=== PATIENT | male | born 1985 | race Caucasian/White ===

== ENCOUNTER 2019-03-01 18:22 | Emergency (ER) | payer BC ==
[2019-03-01] MEDS ORDERED: Tetracaine HCl/PF 0.5% 4 ML Bottle EYERT ONE (18:28)
[2019-03-01] MEDS ORDERED: Fluorescein 1 MG Ophth Strip EYERT ONE (18:29)
--- NOTE | 2019-03-01 19:12 | EDM.PDOC ---
ED HPI GENERAL MEDICAL PROBLEM - General Chief Complaint: ENT Problem Stated Complaint: SOMETHING IN EYE Time Seen by Provider: 03/01/19 19:06 Source of Information: Reports: Patient History Limitations: Reports: No Limitations - History of Present Illness INITIAL COMMENTS - FREE TEXT/NARRATIVE: got something in right eye earlier, had it flushed but still feels irritated. Right Eyelid Pain Score (Numeric/FACES): 8 - Related Data Allergies Allergy/AdvReac Type Severity Reaction Status Date / Time No Known Allergies Allergy Verified 03/01/19 18:28 Home Meds: Home Meds . [No Known Home Meds] 03/01/19 [History] Past Medical History - Past Health History Medical/Surgical History: Denies Medical/Surgical History Social & Family History - Family History Family Medical History: Noncontributory - Tobacco Use Smoking Status *Q: Never Smoker - Caffeine Use Caffeine Use: Reports: None - Recreational Drug Use Recreational Drug Use: No ED ROS GENERAL - Review of Systems Review Of Systems: Comprehensive ROS is negative, except as noted in HPI. ED EXAM GENERAL W FULL EYE - Physical Exam Exam: See Below Exam Limited By: No Limitations General Appearance: Alert, WD/WN, Mild Distress, Other (discomfort) Eye Exam: Right Eye: Conjunctival Injection, Corneal Abrasion, Bilateral Eye: PERRL (ER @ 4mm) Eyelids: Right: Lid Everted for Exam (minor abrasion), Bilateral: Normal Appearance Conjunctiva & Sclera: Right: Injected Cornea Exam: Right: Corneal Abrasion, Examined with Flourescein Extraocular Movements: Bilateral: Intact Pupillary Size: Bilateral: 4 mm Pupillary Reaction: Bilateral: Brisk Anterior Chamber: Bilateral: Normal Appearance Ears: Hearing Grossly Normal Throat/Mouth: Normal Voice, No Airway Compromise Head: Atraumatic Neck: Non-Tender, Full Range of Motion Respiratory/Chest: No Respiratory Distress Cardiovascular: Regular Rate, Rhythm GI/Abdominal: Soft, Non-Tender Neurological: Alert, Oriented, Normal Cognition, Normal Gait, No Motor/Sensory Deficits Psychiatric: Normal Affect, Normal Mood Skin Exam: Warm, Dry, Normal Color Course - Vital Signs Last Recorded V/S: Last Vital Signs Temp 37.1 C 03/01/19 18:29 Pulse 61 03/01/19 18:29 Resp 16 03/01/19 18:29 BP 143/73 H 03/01/19 18:29 Pulse Ox 99 12/26/19 18:29 - Orders/Labs/Meds Orders: Active Orders 24 hr Category Date Time Status Gentamicin [Gentak 0.3% Ophth Oint] Med 03/01/19 19:04 Once 1 gm EYERT NOW ONE Medication Orders Gentamicin Sulfate (Gentak 0.3% Ophth Oint) 1 gm EYERT NOW ONE Stop: 03/01/19 19:05 Meds: Medications Generic Name Dose Route Start Last Admin Trade Name Freq PRN Reason Stop Dose Admin Gentamicin Sulfate 1 gm 03/01/19 19:04 Gentak 0.3% Ophth Oint EYERT 03/01/19 19:05 NOW ONE Discontinued Medications Generic Name Dose Route Start Last Admin Trade Name Freq PRN Reason Stop Dose Admin Fluorescein Sodium 1 mg 03/01/19 18:29 03/01/19 19:00 Ful-Clau EYERT 03/01/19 18:30 1 mg ONETIME ONE Administration Tetracaine HCl 1 ml 03/01/19 18:28 03/01/19 19:00 Tetracaine 0.5% Steri-Unit Carolann EYERT 03/01/19 18:29 1 ml ASDIRECTED ONE Administration Departure - Departure Time of Disposition: 19:13 Disposition: Home, Self-Care 01 Condition: Good Clinical Impression: Corneal abrasion Qualifiers: Encounter type: initial encounter Laterality: right Qualified Code(s): S05.01XA - Injury of conjunctiva and corneal abrasion without foreign body, right eye, initial encounter Abrasion of conjunctiva, right Qualifiers: Encounter type: initial encounter Qualified Code(s): S05.01XA - Injury of conjunctiva and corneal abrasion without foreign body, right eye, initial encounter - Discharge Information Instructions: Corneal Abrasion, [id number] Additional Instructions: 1) use eye ointment and patch eye tonight 2) use eye drops tomorrow for 5 days 3) recheck if there is any change or concern rx given; gentamycin eye ointment and drops Sepsis Event Note - Evaluation Sepsis Screening Result: No Definite Risk - Focused Exam Vital Signs: Vital Signs Temp Pulse Resp BP Pulse Ox 03/01/19 18:29 37.1 C 61 16 143/73 H 99 Date Exam was Performed: 03/01/19 Time Exam was Performed: 19:06 - My Orders Last 24 Hours: My Active Orders 03/01/19 19:04 Gentamicin [Gentak 0.3% Ophth Oint] 1 gm EYERT NOW ONE - Assessment/Plan Last 24 Hours: My Active Orders 03/01/19 19:04 Gentamicin [Gentak 0.3% Ophth Oint] 1 gm EYERT NOW ONE
== END 2019-03-01 19:20 | disposition home or self-care (01) ==
LOC: DL.ED 18:22
DX: S05.01XA Injury of conjunctiva and corneal abrasion without foreign body, right eye, initial encounter (principal); X58.XXXA Exposure to other specified factors, initial encounter
CPT/HCPCS: 99283